=== PATIENT | female | born 1960 | race African-American/Black ===

== ENCOUNTER 2019-03-31 12:14 | Emergency (ER) | payer OTHER ==
[~2019-03-31] VITALS: Ht 165.1 cm; Wt 68.0 kg
[2019-03-31] MEDS ORDERED: MORPHINE SULFATE INJ 2 MG/ML DISP.SYRIN IM ONE (12:30)
[2019-03-31] MEDS ORDERED: KETOROLAC TROMETHAMINE INJ 60 MG/2 ML VIAL IM ONE ×2 (12:30→12:40)
--- NOTE | 2019-03-31 12:30 | NUR ---
BIB RA C/O R HIP PAIN S/P SLIP AND FALL ON STAIRS. PATIENT A/OX4, BREATHING EVEN AND UNLABORED, NO SOB NOTED, KEPT COMFORTABLE.
[2019-03-31] MEDS ORDERED: MORPHINE SULFATE INJ 4 MG/ML DISP.SYRIN ONE (12:40)
[2019-03-31 14:22] VITALS: BP 125/87
--- NOTE | 2019-03-31 14:22 | NUR ---
PATIENT AMBULATORY WITH STEADY GAIT. NO DISTRESS NOTED. Patient discharged to home in stable condition. Written and verbal after care instructions given. Patient verbalizes understanding of instruction.
== END 2019-03-31 14:22 | disposition home or self-care (01) ==
LOC: ER 12:14
DX: S39.012A Strain of muscle, fascia and tendon of lower back, initial encounter (principal); M54.42 Lumbago with sciatica, left side; W18.39XA Other fall on same level, initial encounter; Y93.89 Activity, other specified; Y92.89 Other specified places as the place of occurrence of the external cause; Y99.8 Other external cause status
CPT/HCPCS: 72131; 96372 ×2; 99284; J1885; J2270